=== PATIENT | female | born 1945 | race Caucasian/White ===

== ENCOUNTER 2018-01-21 00:37 | Inpatient (IN) | END 2018-01-28 16:50 | disposition home or self-care (01) | DRG 154 ==

== ENCOUNTER 2018-05-23 13:18 | Emergency (ER) | payer MEDICAID, OTHER ==
[~2018-05-23] VITALS: Wt 51.0 kg
[~2018-05-23 13:18] MED LIST: ALEN70TA5 PO; ALPR0.254 PO; DEXT1CAP PO; DONE10TA7 PO; GABA300C16 PO; LEVO500T10 PO; LOSA25TA12 PO; MEMA10TA PO; NYST1000 PO; OMEP20CA16 PO; OXYC-203 PO; PRAV20TA PO; QUET25TA PO; VENL150C PO
[2018-05-23 13:27] VITALS: BP 134/71; PULSE 126; RESP 19
== END 2018-05-23 15:31 | disposition left against medical advice (07) ==
LOC: E/R 13:18
DX: Z53.21 Procedure and treatment not carried out due to patient leaving prior to being seen by health care provider (principal)

== ENCOUNTER 2018-05-25 20:47 | Inpatient (IN) | payer OTHER, MEDICAID ==
[~2018-05-25] VITALS: Ht 162.6 cm; Wt 39.0 kg
[2018-05-25] MEDS ORDERED: ALBUTEROL 0.5% (NEB) 2.5 MG/0.5 ML AMP INH STA (20:50)
[2018-05-25] MEDS ORDERED: IPRATROPIUM (NEB) 0.5 MG/2.5 ML AMP INH STA (20:50)
[2018-05-25] MEDS ORDERED: DEXAMETHASONE 10 MG/ML 1 ML INJ IV ONE (22:00)
[2018-05-25] MEDS ORDERED: ONDANSETRON 4 MG INJ IV PRN (22:30)
[2018-05-25] MEDS ORDERED: PIPER-TAZO 3.375 GM IV (PMX) 100 ML IVPB ONE (22:30)
[2018-05-25] MEDS ORDERED: NACL 0.9% 3 ML SYG IV SCH (22:30)
--- NOTE | 2018-05-25 23:46 | HP ---
Date/Time of Note Date/Time of Note DATE: 05/25/18 TIME: 23:46 Assessment/Plan VTE Prophylaxis Pharmacological prophylaxis: LMWH Lines/Catheters IV [facility]ter Type [facility]from [facility]): Saline Lock Assessment/Plan Hospital Course This is a 73 female being admitted to the telemetry floor for: #1 sepsis: Secondary to underlying UTI. There is also question of possible pneumonia on chest x-ray however CT did not show evidence of pneumonia. At the current time we will continue Zosyn, will await urine culture results. #2 acute on chronic respiratory distress: Patient has a history of ALS, she did receive a treatment which did result in improvement. Sh she however she however does remain tachycardic in the 130s 140s though she did receive an albuterol treatment. At the current time I will switch albuterol to Xopenex nebulization. Given her hypoxia and her tachycardia though I will also check a d-dimer level and if this is elevated we will get a CTA of the chest to rule out pulmonary embolism. Will consult pulmonology. #3 urinary tract infection: Await urine culture results, continue Zosyn #4 ALS: At the current time will hold Nuedexta given that the patient was recently on Levaquin. Supportive care, PRN breathing treatments. Gabapentin #5 depression: We will hold Effexor and Seroquel alprazolam given patient's Levaquin use. #6 osteoporosis: Continue alternate #7 hypertension: Continue losartan #8 dementia hold donepezil secondary to Levaquin #9 GERD: Continue omeprazole #10 DVT and GI prophylaxis, Lovenox, Protonix CODE STATUS: DNR/DNI further treatment strategy will be implemented for clinical course Result Diagram: 05/25/18212605/25/182126 Results 24hrs Laboratory Tests Test 05/25/18 21:21 05/25/18 21:27 05/25/18 21:52 POC Venous Lactate 1.5 White Blood Count 12.7 #H Red Blood Count 4.32 # Hemoglobin 12.3 Hematocrit 41.2 Mean Corpuscular Volume 95.4 Mean Corpuscular Hemoglobin 28.5 L Mean Corpuscular 29.9 L Hemoglobin Concent Red Cell Distribution Width 13.8 Platelet Count 703 #H Mean Platelet Volume 9.2 Immature Granulocytes % 0.600 H Neutrophils % 87.4 H Lymphocytes % 7.6 L Monocytes % 4.1 Eosinophils % 0.1 Basophils % 0.2 Nucleated Red Blood Cells % 0.0 Immature Granulocytes # 0.070 H Neutrophils # 11.1 H Lymphocytes # 1.0 Monocytes # 0.5 Eosinophils # 0.0 Basophils # 0.0 Nucleated Red Blood Cells # 0.0 Prothrombin Time 13.8 Prothrombin Time Ratio 1.1 INR International 1.05 Normalized Ratio Activated Partial Thromboplast 31.9 Time Sodium Level 141 Potassium Level 3.8 Chloride Level 98 Carbon Dioxide Level 31 Anion Gap 12 Blood Urea Nitrogen 10 Creatinine 0.46 Est Glomerular Filtrat Rate mL/min Glucose Level 130 Calcium Level 10.4 H Total Bilirubin 0.0 L Direct Bilirubin 0.00 Indirect Bilirubin 0.0 Aspartate Amino 21 Transf (AST/SGOT) Alanine < 6 L Aminotransferase (ALT/SGPT) Alkaline Phosphatase 151 H Troponin I 0.015 B-Type Natriuretic Peptide 423 H Total Protein 8.1 Albumin 4.0 Globulin 4.10 H Albumin/Globulin Ratio 0.97 Urine Color YELLOW Urine Clarity SLIGHTLY CLOUDY A Urine pH 6.0 Urine Specific [place] 1.006 Urine Ketones NEGATIVE Urine Nitrite NEGATIVE Urine Bilirubin NEGATIVE Urine Urobilinogen NEGATIVE Urine Leukocyte Esterase 3+ H Urine Microscopic RBC 30 H Urine Microscopic WBC 78 H Urine Bacteria FEW A Urine Hemoglobin 1+ H Urine Glucose NEGATIVE Urine Total Protein NEGATIVE HPI/ROS Admit Date/Time Admit Date/Time Hx of Present Illness Chief complaint: Shortness of breath, generalized weakness and sick times 1 week This is a 73-year-old female with a history of ALS, has been having 1 week of feeling sick, having progressive shortness of breath. Brought in by ambulance with hypoxia, she has been on amoxicillin for potential respiratory infection. And then was started on Levaquin. She at the current time denies any respiratory distress. She is noted to be tachycardic on the gambling monitor. She also uses a home CPAP/BiPAP at night. Of note, because she was started on Levaquin as an outpatient her primary care doctor held her Effexor her Nuedexta her omeprazole and her donepezil temporarily. She does wear a diaper. Allergies: Adhesive tape Medications: See MAR ROS Const: As per HPI Eyes : No pain discharge or redness or change in visual acuity ENT: No pain, sore throat, congestion, congestion, dysphagia or discharge Respiratory: As per HPI Cardiovascular: No chest pain, palpitation, PND, or edema GI : no change in appetite, abdominal pain, nausea, vomiting, diarrhea, constipation, or change in the color his stool Genitourinary: No dysuria, hematuria, flank pain , discharge or CVA tenderness Musculoskeletal: No joint pain, back pain, neck pain, restricted range of motion in neck or joints Skin: No rash, bruising or hives Neuro: No headache, dizziness, syncope, seizure, focal weakness Endocrine: No polyuria, polydipsia, temperature intolerance Psych: No hallucination, depression, anxiety or suicidal ideation PMH/Family/Social Past Medical History ALS, dementia, hypertension, depression, hyperlipidemia, anxiety, osteoporosis Medications Current Medications Piperacillin Sod/ Tazobactam Sod 100 ml @ 200 mls/hr Q6 IVPB ; Start 05/26/18 at 06:00 Sodium Chloride 1,000 ml @ 80 mls/hr [id number] IV ; Start 05/25/18 at 22:26 IV Flush (NS 3 ml) 3 ml PER PROTOCOL IV ; Start 05/25/18 at 22:30 Ondansetron HCl (Zofran Inj) 4 mg Q6H PRN IV NAUSEA/VOMITING; Start 05/25/18 at 22:30 Ipratropium [place] (Atrovent 0.02% (Neb)) 0.5 mg Q4H RESP THERAPY HHN ; Start 05/25/18 at 22:30 Levalbuterol (Xopenex Neb) 1.25 mg Q4H RESP THERAPY HHN ; Start 05/25/18 at 22:30 Coded Allergies: adhesive tape (Unverified Allergy, Intermediate, RASH, 01/22/18) Past Surgical History Right hip surgery Past Surgical Hx: other Family History Significant Family History: no pertinent family hx, other Social History Alcohol Use: none Smoking Status: Never smoker Drug Use: none Exam/Review of Systems Vital Signs Vitals Vital Signs Date Temp Pulse Resp B/P (MAP) Pulse Ox O2 O2 Flow FiO2 Time Delivery Rate 05/25/18 126 17 93 Nasal 4.0 21:34 Cannula 05/25/18 98.1 142/98 20:51 (113) Exam Exam General: Patient is a pleasant female currently sitting in bed she does not appear to be in any acute distress, frail-appearing and somewhat contracted, she is cachectic HEENT: Atraumatic, normocephalic. The pupils are equal, round and reactive. Extraocular motor are intact Neck: Supple with full range of motion. No rigidity or meningismus Chest: Nontender Lungs: Clear to auscultation bilaterally, limited respiratory inspiration likely secondary to ALS Heart: Sinus tachycardia Abdomen: Soft , nontender, nondistended , bowel sounds are present. No guarding no rebound tenderness , No masses or organomegaly. No costovertebral temporal angle mass Extremities: Normal to inspection, no edema no cyanosis Neurologic: Awake and alert, answering questions, further neurological examination was unable to be assessed given her ALS and clinical condition. Additional Comments PROCEDURE: CT Chest, Abdomen and Pelvis without contrast. CLINICAL INDICATION: Shortness of breath TECHNIQUE: CT scan of the chest, abdomen and pelvis was performed on a multidetector CT scanner. No intravenous contrast material was utilized. Coronal and sagittal reformatted images were obtained from the axial source images. Images were reviewed on a high-resolution PACS workstation. Exam CTDlvol = 7 mGy and DLP = 463 mGy-cm. One of the following 3 dose reduction techniques were used: Automated exposure control; adjustment of the mA and/or kV according to patient size; or use of iterative reconstruction technique. DICOM images are available. COMPARISON: Chest x-ray 05/25/2018, CT abdomen pelvis 07/25/2010 FINDINGS: CT Chest: There is redemonstrated severely elevated left hemidiaphragm extending to the upper left chest at the level aortic arch. There is an underlying gas-filled stomach of loops of bowel. There is left-sided pleural fluid and atelectasis small amount of left apical aerated lung. There is small amount of right pleural fluid. Mild right basilar atelectasis. Heart and mediastinum are displaced to the right. Heart is normal in size. There is no pericardial fluid or effusion. Pulmonary arteries are unremarkable. The thoracic aorta is normal caliber without aneurysm. There is no mediastinal or hilar lymphadenopathy or mass. There are mild degenerative changes of the thoracic spine. There are no fractures. There is scattered calcifications in the breasts bilaterally. CT abdomen/pelvis: The liver is overall normal in size. No intrahepatic lesions are identified. The gallbladder is normal in appearance. There is no definite biliary ductal dilation. Pancreas is normal in appearance. The spleen is unremarkable.. There are no adrenal masses. The aorta is normal in caliber. There are atherosclerotic vascular calcification. IVC filter is present.. There is moderate severe left hydronephrosis and proximal hydroureter to the level of 8.0 x 7 mm obstructing calculus in the proximal left ureter. There is no other renal or ureteral calculus. There are nonobstructing calcifications in the lower pole left kidney. Urinary bladder is well distended and normal in appearance. There is wall thickening in the intrathoracic stomach. There is no obstruction or ileus. The appendix is normal in appearance.. There is no evidence for diverticulitis. There is no free fluid. Uterus is unremarkable. There are degenerative changes of the lower lumbar spine. There is metal artifact from a right hip bipolar arthroplasty. IMPRESSION: 1. Chronically severely elevated left hemidiaphragm similar to prior study 07/25/2010. Associated mediastinal shift to the right and left apical atelectasis with small amount of aerated lung at the left lung apex. 2. Patchy atelectasis at the right lung base. 3. Redemonstrated calcifications in the proximal left ureter also present on 07/25/2010. Size of the proximal left ureteral calcification and degree of severe left hydronephrosis and hydro ureter is increased. 4. Wall thickening of the intrathoracic stomach. No definite bowel obstruction or ileus. 5. Remainder of the study is unchanged. RPTAT: HMVK .Scooby Raímrez MD, MD Date Time Electronically viewed and signed by .Scooby Ramírez MD, MD on 05/25/2018 23:26 .K/ CC: RONEN YU MD [id number] PROCEDURE: XR Chest. CLINICAL INDICATION: chest pain TECHNIQUE: Single frontal view of the chest was obtained COMPARISON: DR FREITAS CHEST 01/23/2018; AQUILINO CHEST 05/18/2015 FINDINGS: There is worsening marked elevation of the left diaphragm. There is left lung atelectasis and possible effusion. There is only a minimal amount of aerated lung in the left upper lobe. There are dilated loops of bowel underneath the left diaphragm. There is shift of the mediastinum to the right. The heart size cannot be adequately evaluated. There is a possible right lower lobe infiltrate. RPTAT: AA IMPRESSION: Worsening marked elevation of the left diaphragm. Left lung atelectasis and possible effusion. Only a small amount of aerated lung seen in the left upper lobe. Dilated loops of bowel underneath the left diaphragm. Possible patchy right lower lobe infiltrate. Further evaluation with a CT of the chest and abdomen is recommended. .Uri Rutledge MD, MD Date Time Electronically viewed and signed by .Uri Rutledge MD, MD on 05/25/2018 22:13 .S/ CC: RONEN YU MD [id number] YOMI LOVETT May 25, 2018 23:46
[2018-05-25] MEDS: IPRATROPIUM (NEB) 0.5 MG/2.5 ML AMP HHN SCH (23:59)
[2018-05-25] MEDS: LEVALBUTEROL (NEB) 1.25 MG/0.5 ML AMP HHN SCH (23:59)
[2018-05-26] VITALS (12 sets, daily range): BP systolic 128–144; BP diastolic 63–81; PULSE 114–137; RESP 18–20; Ht 162.6 cm; Wt 39.0 kg
--- NOTE | 2018-05-26 01:23 | ERD ---
ER Documentation Chief Complaint Chief Complaint CÉSAR STEWART from home,gen weakness,"sick" X1 week per family,hx ALS HPI 73-year-old female with a history of ALS, has been having 1 week of feeling sick, having progressive shortness of breath. Brought in by ambulance with hypoxia, she has been on amoxicillin for potential respiratory infection. Patient is DO NOT INTUBATE, she is also been using Xopenex at home. History was obtained from patient, spouse as well as daughter. ROS All systems reviewed and are negative except as per history of present illness. Medications Home Meds Active Scripts Levofloxacin* (Levofloxacin*) 500 Mg Tablet, 500 MG PO DAILY for 5 Days, #5 TAB Prov:JEANETTE CACERES M. 01/27/18 Nystatin (Nystatin) 100,000 Unit/1 Ml Oral.susp, 5 ML PO QID for 7 Days, #150 ML Prov:JEANETTE CACERES M. 01/27/18 Reported Medications Oxycodone HCl/Acetaminophen (Percocet 7.5-325 mg Tablet) 1 Each Tablet, 1 EACH PO, TAB 01/20/18 Alprazolam* (Alprazolam*) 0.25 Mg Tablet, 0.25 MG PO TID PRN for ANXIETY, TAB 01/20/18 Alendronate Sodium* (Fosamax*) 70 Mg Tablet, 70 MG PO Q7D, #4 TAB 01/20/18 Memantine* (Namenda*) 10 Mg Tablet, 10 MG PO QPM, #30 TAB 01/20/18 Donepezil* (Donepezil*) 10 Mg Tablet, 10 MG PO QHS, #30 TAB 01/20/18 Quetiapine Fumarate* (Seroquel*) 25 Mg Tablet, 25 MG PO HS, #30 TAB 01/20/18 Omeprazole* (Omeprazole*) 20 Mg Capsule.dr, 20 MG PO BID, #30 CAP 01/20/18 Pravastatin Sodium (Pravachol) 20 Mg Tablet, 20 MG PO QPM, TAB 01/20/18 Gabapentin* (Gabapentin*) 300 Mg Capsule, 600 MG PO QHS, #180 CAP 01/20/18 Losartan Potassium* (Losartan Potassium*) 25 Mg Tablet, 25 MG PO BID, TAB 01/20/18 Venlafaxine Hcl* (Effexor XR*) 150 Mg Cap.sr.24h, 150 MG PO QAM, CAP 01/20/18 Dextromethorphan Hbr/Quinidine (NUEDEXTA 20-10 MG CAPSULE) 1 Each Capsule, 1 EACH PO BID, CAP 01/20/18 Allergies Allergies: Coded Allergies: adhesive tape (Unverified Allergy, Intermediate, RASH, 01/22/18) PMhx/Soc History of Surgery: Yes (RIGHT HIP ORIF;IVC FILTER;EGD;) Anesthesia Reaction: No Hx Neurological Disorder: Yes (ALS;ALZHEIMER DEMENTIA;) Hx Respiratory Disorders: Yes (LOW LUNG VOLUMES;) Hx Cardiac Disorders: No Hx Psychiatric Problems: No Hx Miscellaneous Medical Probl: No Hx Alcohol Use: No Hx Substance Use: No Hx Tobacco Use: No Smoking Status: Never smoker Physical Exam Vitals Vital Signs Date Temp Pulse Resp B/P (MAP) Pulse Ox O2 O2 Flow FiO2 Time Delivery Rate 05/26/18 136 22 95 Nasal 3.0 00:01 Cannula 05/26/18 95 3.0 00:00 05/25/18 126 17 93 Nasal 4.0 21:34 Cannula 05/25/18 93 4.0 21:34 05/25/18 Nasal 3 21:27 Cannula 05/25/18 Nasal 3.0 21:27 Cannula 05/25/18 98.1 131 21 142/98 93 20:51 (113) Physical Exam Const: Thin frail appearing female, with muscle wasting noted at the ex tremities. Head: Atraumatic Eyes: Normal Conjunctiva ENT: Normal External Ears, Nose and Mouth. Neck: Full range of motion. No meningismus. Resp: Breath sounds are decreased on the left side, rhonchorous on the right side Cardio: Regular rate and rhythm, no murmurs Abd: Soft, non tender, non distended. Normal bowel sounds Skin: No petechiae or rashes Back: No midline or flank tenderness Ext: No cyanosis, or edema Neur: Awake and alert Psych: Normal Mood and Affect Result Diagram: 05/25/18212605/25/182126 Results 24 hrs Laboratory Tests Test 05/25/18 21:21 05/25/18 21:27 05/25/18 21:52 POC Venous Lactate 1.5 mmol/L White Blood Count 12.7 10^3/ul Red Blood Count 4.32 10^6/ul Hemoglobin 12.3 g/dl Hematocrit 41.2 % Mean Corpuscular Volume 95.4 fl Mean Corpuscular Hemoglobin 28.5 pg Mean Corpuscular 29.9 g/dl Hemoglobin Concent Red Cell Distribution Width 13.8 % Platelet Count 703 10^3/UL Mean Platelet Volume 9.2 fl Immature Granulocytes % 0.600 % Neutrophils % 87.4 % Lymphocytes % 7.6 % Monocytes % 4.1 % Eosinophils % 0.1 % Basophils % 0.2 % Nucleated Red Blood Cells % 0.0 /100WBC Immature Granulocytes # 0.070 10^3/ul Neutrophils # 11.1 10^3/ul Lymphocytes # 1.0 10^3/ul Monocytes # 0.5 10^3/ul Eosinophils # 0.0 10^3/ul Basophils # 0.0 10^3/ul Nucleated Red Blood Cells # 0.0 10^3/ul Prothrombin Time 13.8 Sec Prothrombin Time Ratio 1.1 INR International 1.05 Normalized Ratio Activated Partial Thromboplast 31.9 Sec Time Sodium Level 141 mmol/L Potassium Level 3.8 mmol/L Chloride Level 98 mmol/L Carbon Dioxide Level 31 mmol/L Anion Gap 12 Blood Urea Nitrogen 10 mg/dl Creatinine 0.46 mg/dl Est Glomerular Filtrat mL/min Rate mL/min Glucose Level 130 mg/dl Calcium Level 10.4 mg/dl Total Bilirubin 0.0 mg/dl Direct Bilirubin 0.00 mg/dl Indirect Bilirubin 0.0 mg/dl Aspartate Amino 21 IU/L Transf (AST/SGOT) Alanine < 6 IU/L Aminotransferase (ALT/SGPT) Alkaline Phosphatase 151 IU/L Troponin I 0.015 ng/ml B-Type Natriuretic Peptide 423 PG/ML Total Protein 8.1 g/dl Albumin 4.0 g/dl Globulin 4.10 g/dl Albumin/Globulin Ratio 0.97 Urine Color YELLOW Urine Clarity SLIGHTLY CLOUDY Urine pH 6.0 Urine Specific [place] 1.006 Urine Ketones NEGATIVE mg/dL Urine Nitrite NEGATIVE mg/dL Urine Bilirubin NEGATIVE mg/dL Urine Urobilinogen NEGATIVE mg/dL Urine Leukocyte Esterase 3+ Ramila/ul Urine Microscopic RBC 30 /HPF Urine Microscopic WBC 78 /HPF Urine Bacteria FEW /HPF Urine Hemoglobin 1+ mg/dL Urine Glucose NEGATIVE mg/dL Urine Total Protein NEGATIVE mg/dl Current Medications Medications Dose Sig/Kim Start Time Status Last (Trade) Ordered Route PRN Stop Time Admin Dose Reason Admin Ipratropium 0.5 mg ONCE STAT 05/25/18 DC 05/25/18 Young Harris INH 20:50 21:33 (Atrovent 05/25/18 20:53 0.02% (Neb)) Albuterol 15 mg ONCE STAT 05/25/18 DC 05/25/18 (Proventil INH 20:50 21:33 0.5% (Neb)) 05/25/18 20:53 10 mg ONCE ONCE 05/25/18 DC 05/25/18 Dexamethasone IV 22:00 22:00 (Decadron) 05/25/18 22:01 Piperacillin 100 ml @ ONCE ONCE 05/25/18 DC 05/25/18 Sod/ 200 mls/hr IVPB 22:30 23:10 Tazobactam 05/25/18 22:59 Sod Piperacillin 100 ml @ Q6 IVPB 05/26/18 Sod/ 200 mls/hr 06:00 Tazobactam Sod Sodium 1,000 ml @ [id number] IV 05/25/18 Chloride 80 mls/hr 22:26 IV Flush 3 ml PER 05/25/18 (NS 3 ml) PROTOCOL IV 22:30 Ondansetron 4 mg Q6H PRN 05/25/18 HCl (Zofran IV 22:30 Inj) NAUSEA/VOMITI NG Ipratropium 0.5 mg Q4H RESP 05/25/18 05/26/18 Young Harris THERAPY HHN 22:30 00:00 (Atrovent 0.02% (Neb)) 1.25 mg Q4H RESP 05/25/18 05/26/18 Levalbuterol THERAPY HHN 22:30 00:00 (Xopenex Neb) Procedures/MDM 73-year-old female presents for evaluation of progressive weakness and shortness of breath. Most likely suspect that her symptoms are at least partially, related to her chronic ALS, x-ray shows atelectasis, as well as findings below, I cannot definitively rule out pneumonia, thus we will treat empirically with Zosyn, which will also cover pyuria, patient does not have any urinary symptoms. She has no fever, I do not suspect sepsis at this point, patient is a DNR/DNI, she will be admitted to telemetry under Dr. Mcleod. She will also be receiving chest physiotherapy. 1. Chronically severely elevated left hemidiaphragm similar to prior study 07/25/2010. Associated mediastinal shift to the right and left apical atelectasis with small amount of aerated lung at the left lung apex. 2. Patchy atelectasis at the right lung base. 3. Redemonstrated calcifications in the proximal left ureter also present on 07/25/2010. Size of the proximal left ureteral calcification and degree of severe left hydronephrosis and hydro ureter is increased. 4. Wall thickening of the intrathoracic stomach. No definite bowel obstruction or ileus. 5. Remainder of the study is unchanged. EKG: Rate/Rhythm: Normal Sinus Rhythm QRS, ST, T-waves: No changes consistent w/ acute ischemia Impression: No evidence of ischemia or arrhythmia Departure Diagnosis: Primary Impression: Acute weakness Additional Impressions: Hypoxia ALS (amyotrophic lateral sclerosis) Condition: Serious RONEN YU MD May 26, 2018 01:23
[2018-05-26] MEDS: SOD CHLORIDE 0.9% 1,000 ML IV SCH ×4 (03:06→23:26)
[2018-05-26] MEDS ORDERED: ENOXAPARIN 40 MG/0.4 ML SYG SC SCH ×2 (05:00)
[2018-05-26] MEDS: IPRATROPIUM (NEB) 0.5 MG/2.5 ML AMP HHN SCH ×6 (05:44→20:57)
[2018-05-26] MEDS: LEVALBUTEROL (NEB) 1.25 MG/0.5 ML AMP HHN SCH ×6 (05:44→20:57)
[2018-05-26] MEDS: PIPER-TAZO 3.375 GM IV (PMX) 100 ML IVPB SCH ×4 (05:56→23:56)
--- NOTE | 2018-05-26 06:58 | NUR ---
EOSS Received pt from Ed at 0200, pt placed on tele monitor, vitals taken, head to toe assessment taken. Pt updated on plan of care, low air loss mattress ordered, SCDs on pt. Pt turned and repositioned q 2 hours, caregiver at bedside, pt daughter to arrive in AM, will endorse to oncoming RN.
[2018-05-26] MEDS ORDERED: ALPRAZOLAM 0.25 MG TAB PO PRN (08:30)
[2018-05-26] MEDS: ACETYLCYSTEINE 20% 4 ML VIAL NEB SCH ×3 (08:40→20:54)
[2018-05-26] MEDS ORDERED: SOD CHLORIDE 0.9% 100 ML ONE (09:09)
[2018-05-26] MEDS ORDERED: IOHEXOL 100 ML ONE (09:09)
--- NOTE | 2018-05-26 09:45 | CONS ---
Assessment/Plan Assessment/Plan Assessment/Plan (Daily) Chest x-ray showing chronic appearing volume loss on the left side with eventration of left hemidiaphragm, stomach is mostly in the chest cavity. CT chest findings showing similar results. Assessment recommendations; 1. Patient with history of ALS admitted for UTI and pneumonia involving left gilda ng. Currently on appropriate antimicrobial regimen. 2. Chronic eventration left hemidiaphragm. Continue current supportive care. I did have a detailed discussion with the patient's daughter and at bedside and answered all their questions. Consultation Date/Type/Reason Admit Date/Time Date of Consultation: May 26, 2018 Type of Consult Pulmonary Patient is a pleasant 73-year-old lady who was brought into the hospital with complaints of having some chest congestion and coughing. Upon evaluation further workup was done including a chest x-ray which is showing chronic volume loss of the left side due to eventration of left hemidiaphragm with possibility of superimposed pneumonia as well as UTI. The patient however is doing very well clinically and was completely awake and alert by the time I saw her. She denies any shortness of breath, chest pain, complains of scant cough without any wheezing or fever. Denies any abdominal pain nausea vomiting. Past medical history; 1. History of ALS. 2. History of UTI. 3. History of DVT. Medications; reviewed. Allergies; adhesive tape. Social history; patient has been a non-smoker. Family history; patient has a supportive family. Occupational history; patient is on disability. Review of systems; denies any headache, chest pain, shortness of breath has improved. Complains of scant cough. Patient denies having any dysphagia. Able to eat orally quite well. Denies any abdominal pain, nausea vomiting. Any fever or chills. General exam; elderly female, awake alert, currently in no distress. Date/Time of Note DATE: 05/26/18 TIME: 09:41 Past Medical History Home Meds Active Scripts Levofloxacin* (Levofloxacin*) 500 Mg Tablet, 500 MG PO DAILY for 5 Days, #5 TAB Prov:JEANETTE CACERES 01/27/18 Nystatin (Nystatin) 100,000 Unit/1 Ml Oral.susp, 5 ML PO QID for 7 Days, #150 ML Prov:JEANETTE CACERES 01/27/18 Reported Medications Oxycodone HCl/Acetaminophen (Percocet 7.5-325 mg Tablet) 1 Each Tablet, 1 EACH PO, TAB 01/20/18 Alprazolam* (Alprazolam*) 0.25 Mg Tablet, 0.25 MG PO TID PRN for ANXIETY, TAB 01/20/18 Alendronate Sodium* (Fosamax*) 70 Mg Tablet, 70 MG PO Q7D, #4 TAB 01/20/18 Memantine* (Namenda*) 10 Mg Tablet, 10 MG PO QPM, #30 TAB 01/20/18 Donepezil* (Donepezil*) 10 Mg Tablet, 10 MG PO QHS, #30 TAB 01/20/18 Quetiapine Fumarate* (Seroquel*) 25 Mg Tablet, 25 MG PO HS, #30 TAB 01/20/18 Omeprazole* (Omeprazole*) 20 Mg Capsule.dr, 20 MG PO BID, #30 CAP 01/20/18 Pravastatin Sodium (Pravachol) 20 Mg Tablet, 20 MG PO QPM, TAB 01/20/18 Gabapentin* (Gabapentin*) 300 Mg Capsule, 600 MG PO QHS, #180 CAP 01/20/18 Losartan Potassium* (Losartan Potassium*) 25 Mg Tablet, 25 MG PO BID, TAB 01/20/18 Venlafaxine Hcl* (Effexor XR*) 150 Mg Cap.sr.24h, 150 MG PO QAM, CAP 01/20/18 Dextromethorphan Hbr/Quinidine (NUEDEXTA 20-10 MG CAPSULE) 1 Each Capsule, 1 EACH PO BID, CAP 01/20/18 Medications Current Medications Piperacillin Sod/ Tazobactam Sod 100 ml @ 200 mls/hr Q6 IVPB Last administered on 05/26/18at 05:56; Admin Dose 200 MLS/HR; Start 05/26/18 at 06:00 Sodium Chloride 1,000 ml @ 80 mls/hr [id number] IV Last administered on 05/26/18at 03:06; Admin Dose 80 MLS/HR; Start 05/25/18 at 22:26 IV Flush (NS 3 ml) 3 ml PER PROTOCOL IV ; Start 05/25/18 at 22:30 Ondansetron HCl (Zofran Inj) 4 mg Q6H PRN IV NAUSEA/VOMITING; Start 05/25/18 at 22:30 Ipratropium [place] (Atrovent 0.02% (Neb)) 0.5 mg Q4H RESP THERAPY HHN Last administered on 05/26/18at 08:28; Admin Dose 0.5 MG; Start 05/25/18 at 22:30 Levalbuterol (Xopenex Neb) 1.25 mg Q4H RESP THERAPY HHN Last administered on 05/26/18at 08:28; Admin Dose 1.25 MG; Start 05/25/18 at 22:30 Acetylcysteine (Mucomyst) 3 ml Q6H RESP THERAPY NEB Last administered on 05/26/18at 08:40; Admin Dose 3 ML; Start 05/26/18 at 08:00; Stop 05/27/18 at 07:59 Enoxaparin Sodium (Lovenox) 40 mg Q12 SC Last administered on 05/26/18at 06:14; Admin Dose 40 MG; Start 05/26/18 at 05:00 Alendronate Sodium (Fosamax) 70 mg Q7D PO ; Start 06/01/18 at 06:00 Alprazolam (Xanax) 0.25 mg TID PRN PO ANXIETY; Start 05/26/18 at 08:30 Gabapentin (Neurontin) 600 mg QHS PO ; Start 05/26/18 at 21:00 Losartan Potassium (Cozaar) 25 mg BID PO ; Start 05/26/18 at 09:00 Memantine (Namenda) 10 mg QPM PO ; Start 05/26/18 at 21:00 Nystatin (Nystatin Susp) 5 ml QID PO ; Start 05/26/18 at 09:00 Pantoprazole Sodium (Protonix) 20 mg BID@0600,1800 PO ; Start 05/26/18 at 09:00 Atorvastatin Calcium (Lipitor) 10 mg DAILY@21 PO ; Start 05/26/18 at 21:00 Allergies: Coded Allergies: adhesive tape (Unverified Allergy, Intermediate, RASH, 01/22/18) Past Surgical History Past Surgical Hx: other Social History Alcohol Use: none Smoking Status: Never smoker Drug Use: none Exam/Review of Systems Exam Vitals Vital Signs Date Temp Pulse Resp B/P (MAP) Pulse Ox O2 O2 Flow FiO2 Time Delivery Rate 05/26/18 122 08:36 05/26/18 24 98 Nasal 3.0 08:29 Cannula 05/26/18 98.1 144/81 07:50 (102) Intake and Output 05/25/18 05/25/18 05/26/18 1515:00 23:00 07:00 IntakeIntake Total 100 ml OutputOutput Total 40 ml BalanceBalance 60 ml Exam HEENT exam; supple neck, no JVD. No lymphadenopathy. Midline trachea. No thyromegaly. Patient has fair dentition. Chest exam; diminished breath sounds left lung. Right lung is fairly clear. S1-S2 audible, no murmurs. Regular rhythm. Abdomen exam; soft, nondistended. No organomegaly. Bowel sounds audible. Extremity exam; no peripheral edema. 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 Exhibiting profound generalized weakness. Results Result Diagram: 05/26/18 0359 05/26/18 0359 Results 24hrs Laboratory Tests Test 05/25/18 21:21 05/25/18 21:27 05/25/18 21:52 05/26/18 00:56 POC Venous 1.5 Lactate White Blood Count 12.7 #H Red Blood Count 4.32 # Hemoglobin 12.3 Hematocrit 41.2 Mean Corpuscular 95.4 Volume Mean Corpuscular 28.5 L Hemoglobin Mean Corpuscular 29.9 L Hemoglobin Concen t Red Cell 13.8 Distribution Width Platelet Count 703 #H Mean Platelet 9.2 Volume Immature 0.600 H Granulocytes % Neutrophils % 87.4 H Lymphocytes % 7.6 L Monocytes % 4.1 Eosinophils % 0.1 Basophils % 0.2 Nucleated Red 0.0 Blood Cells % Immature 0.070 H Granulocytes # Neutrophils # 11.1 H Lymphocytes # 1.0 Monocytes # 0.5 Eosinophils # 0.0 Basophils # 0.0 Nucleated Red 0.0 Blood Cells # Prothrombin Time 13.8 Prothrombin Time 1.1 Ratio INR International 1.05 Normalized Ratio Activated 31.9 Partial Thrombopl ast Time Sodium Level 141 Potassium Level 3.8 Chloride Level 98 Carbon Dioxide 31 Level Anion Gap 12 Blood Urea 10 Nitrogen Creatinine 0.46 Est Glomerular Filtrat Rate mL/min Glucose Level 130 Calcium Level 10.4 H Total Bilirubin 0.0 L Direct Bilirubin 0.00 Indirect 0.0 Bilirubin Aspartate Amino 21 Transf (AST/SGOT) Alanine < 6 L Aminotransferase (ALT/SGPT) Alkaline 151 H Phosphatase Troponin I 0.015 B-Type 423 H Natriuretic Peptide Total Protein 8.1 Albumin 4.0 Globulin 4.10 H Albumin/Globulin 0.97 Ratio Urine Color YELLOW Urine Clarity SLIGHTLY CLOUDY A Urine pH 6.0 Urine Specific 1.006 [place] Urine Ketones NEGATIVE Urine Nitrite NEGATIVE Urine Bilirubin NEGATIVE Urine NEGATIVE Urobilinogen Urine Leukocyte 3+ H Esterase Urine Microscopic 30 H RBC Urine Microscopic 78 H WBC Urine Bacteria FEW A Urine Hemoglobin 1+ H Urine Glucose NEGATIVE Urine Total NEGATIVE Protein Lactic Acid Level 1.6 Test 05/26/18 03:59 White Blood Count 14.2 H Red Blood Count 3.52 L Hemoglobin 10.3 L Hematocrit 33.4 L Mean Corpuscular 94.9 Volume Mean Corpuscular 29.3 Hemoglobin Mean Corpuscular 30.8 L Hemoglobin Concen t Red Cell 13.8 Distribution Width Platelet Count 600 H Mean Platelet 9.1 Volume Immature 0.700 H Granulocytes % Neutrophils % 94.7 H Lymphocytes % 3.2 L Monocytes % 1.3 Eosinophils % 0.0 Basophils % 0.1 Nucleated Red 0.0 Blood Cells % Immature 0.100 H Granulocytes # Neutrophils # 13.4 H Lymphocytes # 0.5 L Monocytes # 0.2 L Eosinophils # 0.0 Basophils # 0.0 Nucleated Red 0.0 Blood Cells # D-Dimer 1316.96 H D-Dimer Comment Sodium Level 142 Potassium Level 3.7 Chloride Level 100 Carbon Dioxide 30 Level Anion Gap 12 Blood Urea 11 Nitrogen Creatinine 0.43 L Est Glomerular Filtrat Rate mL/min Glucose Level 162 Hemoglobin A1c 5.4 Calcium Level 9.8 Total Bilirubin 0.0 L Direct Bilirubin 0.00 Indirect 0.0 Bilirubin Aspartate Amino 17 Transf (AST/SGOT) Alanine < 6 L Aminotransferase (ALT/SGPT) Alkaline 115 Phosphatase Total Protein 6.8 # Albumin 3.4 Globulin 3.40 H Albumin/Globulin 1.00 Ratio Medications Medication Current Medications Piperacillin Sod/ Tazobactam Sod 100 ml @ 200 mls/hr Q6 IVPB Last administered on 05/26/18at 05:56; Admin Dose 200 MLS/HR; Start 05/26/18 at 06:00 Sodium Chloride 1,000 ml @ 80 mls/hr [id number] IV Last administered on 05/26/18at 03:06; Admin Dose 80 MLS/HR; Start 05/25/18 at 22:26 IV Flush (NS 3 ml) 3 ml PER PROTOCOL IV ; Start 05/25/18 at 22:30 Ondansetron HCl (Zofran Inj) 4 mg Q6H PRN IV NAUSEA/VOMITING; Start 05/25/18 at 22:30 Ipratropium [place] (Atrovent 0.02% (Neb)) 0.5 mg Q4H RESP THERAPY HHN Last administered on 05/26/18at 08:28; Admin Dose 0.5 MG; Start 05/25/18 at 22:30 Levalbuterol (Xopenex Neb) 1.25 mg Q4H RESP THERAPY HHN Last administered on 05/26/18at 08:28; Admin Dose 1.25 MG; Start 05/25/18 at 22:30 Acetylcysteine (Mucomyst) 3 ml Q6H RESP THERAPY NEB Last administered on 05/26/18at 08:40; Admin Dose 3 ML; Start 05/26/18 at 08:00; Stop 05/27/18 at 07:59 Enoxaparin Sodium (Lovenox) 40 mg Q12 SC Last administered on 05/26/18at 06:14; Admin Dose 40 MG; Start 05/26/18 at 05:00 Alendronate Sodium (Fosamax) 70 mg Q7D PO ; Start 06/01/18 at 06:00 Alprazolam (Xanax) 0.25 mg TID PRN PO ANXIETY; Start 05/26/18 at 08:30 Gabapentin (Neurontin) 600 mg QHS PO ; Start 05/26/18 at 21:00 Losartan Potassium (Cozaar) 25 mg BID PO ; Start 05/26/18 at 09:00 Memantine (Namenda) 10 mg QPM PO ; Start 05/26/18 at 21:00 Nystatin (Nystatin Susp) 5 ml QID PO ; Start 05/26/18 at 09:00 Pantoprazole Sodium (Protonix) 20 mg BID@0600,1800 PO ; Start 05/26/18 at 09:00 Atorvastatin Calcium (Lipitor) 10 mg DAILY@21 PO ; Start 05/26/18 at 21:00 MARQUIS GHOSH May 26, 2018 09:45
[2018-05-26] MEDS ORDERED: METOPROLOL 5 MG INJ IV ONE (10:00)
[2018-05-26] MEDS: NYSTATIN SUSP 5 ML CUP PO SCH ×4 (10:09→21:51)
[2018-05-26] MEDS: PANTOPRAZOLE SODIUM 20 MG TABEC PO SCH ×2 (10:09→17:32)
[2018-05-26] MEDS: LOSARTAN 25 MG TAB PO SCH ×2 (10:10→21:52)
--- NOTE | 2018-05-26 16:36 | PN ---
Date/Time of Note Date/Time of Note DATE: 05/26/18 TIME: 16:04 Assessment/Plan VTE Prophylaxis Risk score (from Nsg)>0 risk: 6 SCD applied (from Nsg): Yes Pharmacological prophylaxis: LMWH Lines/Catheters IV Catheter Type (from Nrsg): Peripheral IV Urinary Cath still in place: Yes Reason Cath still needed: other (indicate) Assessment/Plan Hospital Course S: no new complaints, family feels she's slightly better, has a lot of questions, reports that she does cough while eating a lot at home Objective: General: Patient is a pleasant female currently sitting in bed she does not appear to be in any acute distress, frail-appearing and somewhat contracted, she is cachectic HEENT: Atraumatic, normocephalic. The pupils are equal, round and reactive. Extraocular motor are intact Neck: Supple with full range of motion. No rigidity or meningismus Chest: Nontender Lungs: Clear to auscultation bilaterally, limited respiratory inspiration likely secondary to ALS Heart: Sinus tachycardia Abdomen: Soft , nontender, nondistended , bowel sounds are present. No guarding no rebound tenderness , No masses or organomegaly. No costovertebral temporal angle mass Extremities: Normal to inspection, no edema no cyanosis Neurologic: Awake and alert, answering questions, occasional confusion cons istent with hx of mild dementia ASSESSMENT AND PLAN: This is a 73-year-old female with a history of ALS, has been having 1 week of feeling sick, having progressive shortness of breath. Brought in by ambulance with hypoxia and was on outpatient abx with progression of symptoms, currently admitted and managed as follows: #1 Sepsis: Secondary to underlying UTI and possible aspiration pneumonia - Continue empiric abx -f/u blood and urine cxs and CT chest to define lung parencyma #2 acute on chronic respiratory distress: -diffuse atelectasis on CXR, f/u CT chest, continue supplemental O2 -Patient with hx of ALS ?disease progression -CTA chest pending to r/o PE -continue supplemetal O2, patient is DNI -continue Bronchodilators #3 urinary tract infection: -Await urine culture results, continue Zosyn #4 ALS: - Nuedexta was put on hold given that the patient was recently on Levaquin. -concerns for aspiration, will get speech therapy eval #5 depression: -Home Effexor, Seroquel and alprazolam on hold given patient's Levaquin us e, plan to resume win 24hrs #6 osteoporosis: chronic, continue home meds #7 hypertension: Continue losartan #8 Chronic dementia: -episoded of pleasant confusion, resume home donepesil in am #9 GERD: Continue omeprazole -patient has hx of severe GI bleeding from a gastric ulcer that was caute rized in the past, family hesitant to use full dose anticoagulation because of this #10 DVT and GI prophylaxis, Lovenox, Protonix CODE STATUS: DNR/DNI further treatment strategy will be implemented for clinical course Result Diagram: 05/26/18 0359 05/26/18 0359 Results 24hrs Laboratory Tests Test 05/25/18 21:21 05/25/18 21:27 05/25/18 21:52 05/26/18 00:56 POC Venous 1.5 Lactate White Blood Count 12.7 #H Red Blood Count 4.32 # Hemoglobin 12.3 Hematocrit 41.2 Mean Corpuscular 95.4 Volume Mean Corpuscular 28.5 L Hemoglobin Mean Corpuscular 29.9 L Hemoglobin Concen t Red Cell 13.8 Distribution Width Platelet Count 703 #H Mean Platelet 9.2 Volume Immature 0.600 H Granulocytes % Neutrophils % 87.4 H Lymphocytes % 7.6 L Monocytes % 4.1 Eosinophils % 0.1 Basophils % 0.2 Nucleated Red 0.0 Blood Cells % Immature 0.070 H Granulocytes # Neutrophils # 11.1 H Lymphocytes # 1.0 Monocytes # 0.5 Eosinophils # 0.0 Basophils # 0.0 Nucleated Red 0.0 Blood Cells # Prothrombin Time 13.8 Prothrombin Time 1.1 Ratio INR International 1.05 Normalized Ratio Activated 31.9 Partial Thrombopl ast Time Sodium Level 141 Potassium Level 3.8 Chloride Level 98 Carbon Dioxide 31 Level Anion Gap 12 Blood Urea 10 Nitrogen Creatinine 0.46 Est Glomerular Filtrat Rate mL/min Glucose Level 130 Calcium Level 10.4 H Total Bilirubin 0.0 L Direct Bilirubin 0.00 Indirect 0.0 Bilirubin Aspartate Amino 21 Transf (AST/SGOT) Alanine < 6 L Aminotransferase (ALT/SGPT) Alkaline 151 H Phosphatase Troponin I 0.015 B-Type 423 H Natriuretic Peptide Total Protein 8.1 Albumin 4.0 Globulin 4.10 H Albumin/Globulin 0.97 Ratio Urine Color YELLOW Urine Clarity SLIGHTLY CLOUDY A Urine pH 6.0 Urine Specific 1.006 [place] Urine Ketones NEGATIVE Urine Nitrite NEGATIVE Urine Bilirubin NEGATIVE Urine NEGATIVE Urobilinogen Urine Leukocyte 3+ H Esterase Urine Microscopic 30 H RBC Urine Microscopic 78 H WBC Urine Bacteria FEW A Urine Hemoglobin 1+ H Urine Glucose NEGATIVE Urine Total NEGATIVE Protein Lactic Acid Level 1.6 Test 05/26/18 03:59 White Blood Count 14.2 H Red Blood Count 3.52 L Hemoglobin 10.3 L Hematocrit 33.4 L Mean Corpuscular 94.9 Volume Mean Corpuscular 29.3 Hemoglobin Mean Corpuscular 30.8 L Hemoglobin Concen t Red Cell 13.8 Distribution Width Platelet Count 600 H Mean Platelet 9.1 Volume Immature 0.700 H Granulocytes % Neutrophils % 94.7 H Lymphocytes % 3.2 L Monocytes % 1.3 Eosinophils % 0.0 Basophils % 0.1 Nucleated Red 0.0 Blood Cells % Immature 0.100 H Granulocytes # Neutrophils # 13.4 H Lymphocytes # 0.5 L Monocytes # 0.2 L Eosinophils # 0.0 Basophils # 0.0 Nucleated Red 0.0 Blood Cells # D-Dimer 1316.96 H D-Dimer Comment Sodium Level 142 Potassium Level 3.7 Chloride Level 100 Carbon Dioxide 30 Level Anion Gap 12 Blood Urea 11 Nitrogen Creatinine 0.43 L Est Glomerular Filtrat Rate mL/min Glucose Level 162 Hemoglobin A1c 5.4 Calcium Level 9.8 Total Bilirubin 0.0 L Direct Bilirubin 0.00 Indirect 0.0 Bilirubin Aspartate Amino 17 Transf (AST/SGOT) Alanine < 6 L Aminotransferase (ALT/SGPT) Alkaline 115 Phosphatase Total Protein 6.8 # Albumin 3.4 Globulin 3.40 H Albumin/Globulin 1.00 Ratio Exam/Review of Systems Exam Vitals Vital Signs Date Temp Pulse Resp B/P (MAP) Pulse Ox O2 O2 Flow FiO2 Time Delivery Rate 05/26/18 98.3 120 20 135/68 100 15:30 (90) 05/26/18 3.0 12:34 05/26/18 Nasal 12:30 Cannula Intake and Output 05/25/18 05/25/18 05/26/18 1515:00 23:00 07:00 IntakeIntake Total 100 ml OutputOutput Total 40 ml BalanceBalance 60 ml Results Results 24hrs Laboratory Tests Test 05/25/18 21:21 05/25/18 21:27 05/25/18 21:52 05/26/18 00:56 POC Venous 1.5 Lactate White Blood Count 12.7 #H Red Blood Count 4.32 # Hemoglobin 12.3 Hematocrit 41.2 Mean Corpuscular 95.4 Volume Mean Corpuscular 28.5 L Hemoglobin Mean Corpuscular 29.9 L Hemoglobin Concen t Red Cell 13.8 Distribution Width Platelet Count 703 #H Mean Platelet 9.2 Volume Immature 0.600 H Granulocytes % Neutrophils % 87.4 H Lymphocytes % 7.6 L Monocytes % 4.1 Eosinophils % 0.1 Basophils % 0.2 Nucleated Red 0.0 Blood Cells % Immature 0.070 H Granulocytes # Neutrophils # 11.1 H Lymphocytes # 1.0 Monocytes # 0.5 Eosinophils # 0.0 Basophils # 0.0 Nucleated Red 0.0 Blood Cells # Prothrombin Time 13.8 Prothrombin Time 1.1 Ratio INR International 1.05 Normalized Ratio Activated 31.9 Partial Thrombopl ast Time Sodium Level 141 Potassium Level 3.8 Chloride Level 98 Carbon Dioxide 31 Level Anion Gap 12 Blood Urea 10 Nitrogen Creatinine 0.46 Est Glomerular Filtrat Rate mL/min Glucose Level 130 Calcium Level 10.4 H Total Bilirubin 0.0 L Direct Bilirubin 0.00 Indirect 0.0 Bilirubin Aspartate Amino 21 Transf (AST/SGOT) Alanine < 6 L Aminotransferase (ALT/SGPT) Alkaline 151 H Phosphatase Troponin I 0.015 B-Type 423 H Natriuretic Peptide Total Protein 8.1 Albumin 4.0 Globulin 4.10 H Albumin/Globulin 0.97 Ratio Urine Color YELLOW Urine Clarity SLIGHTLY CLOUDY A Urine pH 6.0 Urine Specific 1.006 [place] Urine Ketones NEGATIVE Urine Nitrite NEGATIVE Urine Bilirubin NEGATIVE Urine NEGATIVE Urobilinogen Urine Leukocyte 3+ H Esterase Urine Microscopic 30 H RBC Urine Microscopic 78 H WBC Urine Bacteria FEW A Urine Hemoglobin 1+ H Urine Glucose NEGATIVE Urine Total NEGATIVE Protein Lactic Acid Level 1.6 Test 05/26/18 03:59 White Blood Count 14.2 H Red Blood Count 3.52 L Hemoglobin 10.3 L Hematocrit 33.4 L Mean Corpuscular 94.9 Volume Mean Corpuscular 29.3 Hemoglobin Mean Corpuscular 30.8 L Hemoglobin Concen t Red Cell 13.8 Distribution Width Platelet Count 600 H Mean Platelet 9.1 Volume Immature 0.700 H Granulocytes % Neutrophils % 94.7 H Lymphocytes % 3.2 L Monocytes % 1.3 Eosinophils % 0.0 Basophils % 0.1 Nucleated Red 0.0 Blood Cells % Immature 0.100 H Granulocytes # Neutrophils # 13.4 H Lymphocytes # 0.5 L Monocytes # 0.2 L Eosinophils # 0.0 Basophils # 0.0 Nucleated Red 0.0 Blood Cells # D-Dimer 1316.96 H D-Dimer Comment Sodium Level 142 Potassium Level 3.7 Chloride Level 100 Carbon Dioxide 30 Level Anion Gap 12 Blood Urea 11 Nitrogen Creatinine 0.43 L Est Glomerular Filtrat Rate mL/min Glucose Level 162 Hemoglobin A1c 5.4 Calcium Level 9.8 Total Bilirubin 0.0 L Direct Bilirubin 0.00 Indirect 0.0 Bilirubin Aspartate Amino 17 Transf (AST/SGOT) Alanine < 6 L Aminotransferase (ALT/SGPT) Alkaline 115 Phosphatase Total Protein 6.8 # Albumin 3.4 Globulin 3.40 H Albumin/Globulin 1.00 Ratio Medications Medication Current Medications Piperacillin Sod/ Tazobactam Sod 100 ml @ 200 mls/hr Q6 IVPB Last administered on 05/26/18at 05:56; Admin Dose 200 MLS/HR; Start 05/26/18 at 06:00 Sodium Chloride 1,000 ml @ 80 mls/hr [id number] IV Last administered on 05/26/18at 03:06; Admin Dose 80 MLS/HR; Start 05/25/18 at 22:26 IV Flush (NS 3 ml) 3 ml PER PROTOCOL IV ; Start 05/25/18 at 22:30 Ondansetron HCl (Zofran Inj) 4 mg Q6H PRN IV NAUSEA/VOMITING; Start 05/25/18 at 22:30 Ipratropium [place] (Atrovent 0.02% (Neb)) 0.5 mg Q4H RESP THERAPY HHN Last administered on 05/26/18 12:29; Admin Dose 0.5 MG; Start 05/25/18 at 22:30 Levalbuterol (Xopenex Neb) 1.25 mg Q4H RESP THERAPY HHN Last administered on 05/26/18at 12:30; Admin Dose 1.25 MG; Start 05/25/18 at 22:30 Acetylcysteine (Mucomyst) 3 ml Q6H RESP THERAPY NEB Last administered on 05/26/18at 08:40; Admin Dose 3 ML; Start 05/26/18 at 08:00; Stop 05/27/18 at 07:59 Alendronate Sodium (Fosamax) 70 mg Q7D PO ; Start 06/01/18 at 06:00 Alprazolam (Xanax) 0.25 mg TID PRN PO ANXIETY; Start 05/26/18 at 08:30 Gabapentin (Neurontin) 600 mg QHS PO ; Start 05/26/18 at 21:00 Losartan Potassium (Cozaar) 25 mg BID PO Last administered on 05/26/18at 10:10; Admin Dose 25 MG; Start 05/26/18 at 09:00 Memantine (Namenda) 10 mg QPM PO ; Start 05/26/18 at 21:00 Nystatin (Nystatin Susp) 5 ml QID PO Last administered on 05/26/18at 10:09; Admin Dose 5 ML; Start 05/26/18 at 09:00 Pantoprazole Sodium (Protonix) 20 mg BID@0600,1800 PO Last administered on 05/26/18at 10:09; Admin Dose 20 MG; Start 05/26/18 at 09:00 Atorvastatin Calcium (Lipitor) 10 mg DAILY@21 PO ; Start 05/26/18 at 21:00 Enoxaparin Sodium (Lovenox) 40 mg Q12 SC ; Start 05/26/18 at 21:00 JEANETTE CACERES May 26, 2018 16:14
[2018-05-26] MEDS ORDERED: GABAPENTIN 300 MG CAP PO SCH (21:00)
[2018-05-26] MEDS ORDERED: ATORVASTATIN 10 MG TAB PO SCH (21:00)
[2018-05-26] MEDS ORDERED: MEMANTINE 10 MG TAB PO SCH (21:00)
[2018-05-26] MEDS: ENOXAPARIN 40 MG/0.4 ML SYG SC SCH (22:02)
[2018-05-27] VITALS (10 sets, daily range): BP systolic 126–154; BP diastolic 59–80; PULSE 123–142; RESP 18–20
[2018-05-27] MEDS: IPRATROPIUM (NEB) 0.5 MG/2.5 ML AMP HHN SCH ×5 (01:00→17:00)
[2018-05-27] MEDS: LEVALBUTEROL (NEB) 1.25 MG/0.5 ML AMP HHN SCH ×5 (01:00→17:00)
[2018-05-27] MEDS: ACETYLCYSTEINE 20% 4 ML VIAL NEB SCH (02:00)
[2018-05-27] MEDS: PIPER-TAZO 3.375 GM IV (PMX) 100 ML IVPB SCH ×3 (06:07→18:17)
[2018-05-27] MEDS: LANSOPRAZOLE 30 MG CAP PO SCH ×2 (06:07→18:00)
--- NOTE | 2018-05-27 07:38 | NUR ---
RN END OF SHIFT NOTE PATIENT ALERT AND ORIENTED X 4, DENIED PAIN, ABLE TO MAKE HER NEEDS KNOWN. PATIENT HAD ONE BM ON MY SHIFT, CLEANED AND KEPT DRY. 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 PATIENT TURNED Q 2 HOURS, SACROCOCCYX AREA RED, SAVANAH APPLIED. TO ENDORSED TO DAY SHIFT RN TO CONTINUE TO TURN PATIENT Q 2 HOURS.
[2018-05-27] MEDS: NYSTATIN SUSP 5 ML CUP PO SCH ×3 (10:15→17:00)
[2018-05-27] MEDS: LOSARTAN 25 MG TAB PO SCH (10:15)
--- NOTE | 2018-05-27 10:25 | NUR ---
ST NOTE; Pt is a 73 female being admitted to the telemetry floor secondary to sepsis from underlying UTI; found to be hypoxic when brought in. poss; pneumonia on CXR; CT did not show evidence of pna; pt uses a home CPAP/BIPAP at night. PMH: ALS, history of UTI; depression; osteoporosis; HTN; Dementia; GERD CODE STATUS: DNR/DNI Allergies: Adhesive tape premorbid diet; puree;thin current diet; puree;nctr spoon Respiratory Status; pt on supplemental oxygen via nasal cannula 3liters. dental status; permanent upper;lower dentition Vitals/lab; WBC high; pt afebrile CXR: 05/25/18Worsening marked elevation of the left diaphragm. Left lung atelectasis and possible effusion. Only a small amount of aerated lung seen in the left upper lobe. Dilated loops of bowel underneath the left diaphragm. Possible patchy right lower lobe infiltrate. Further evaluation with a CT of the chest and abdomen is recommended. CTA 05/26/18 here is progressive collapse and consolidation of the left lower lobe with complete occlusion of the left lower lobe bronchi along with partial collapse the left upper lobe with partial occlusive changes of the left upper lobe bronchi as well with a residual amount of left apical lung parenchyma that remains aerated. This can be further evaluated with bronchoscopy rule out mucus plugging or endobronchial lesion. There is progressive now complete collapse the right middle lobe with occlusion of the right middle lobe bronchi with partial atelectasis of the right lung base due to distal airways occlusion. This can also be further assessed with bronchoscopy. Stable pronounced elevation of the left hemidiaphragm with left upper quadrant contents of the abdomen that are located in the lower thorax including the entirety of the stomach and portions of the transverse colon and pancreatic tail. This could also represent a diaphragmatic hernia which may be chronic. Continued hydronephrosis of the left kidney with delayed enhancement and atrophy of the left renal parenchyma along with layering stones in the left mid kidney. Atherosclerotic disease. Cognitive Status; Pt able to follow; severely decreased speech intelligibility; Oral Motor: pt difficulty managing her secretions; ant and lateral spillage of secretions as well with liquid trials; [place] used to suction oral cavity; severe to profound lingual and labial weakness no head or trunk control pt seated semi upright; pt seen with am tray; daughter devon present; reported just recently from nursing staff placed on nctr thick sec.to aspiration precautions. nectar thick via spoon; timely swallow but suspect decreased oral control. multiple trials no cough; wet vocal quality at baseline sec.to secretions heard in upper airway; via cup nctr x1 delayed cough; cough weak and unproductive. suspect pharyngeal residue. thin tested 1/2 tsp to assess if less residue and if can tolerate thinner bolus; no coughing but again suspect silent aspiration with both puree;solids; pt has laryngeal elevation and appears appropriate timing of the swallow rec. video swallow study; family unsure if they want that; educated as high risk for asp with current diet and suspected. family to decide if pt wants video. they do not want NPO status; monitor closely; st to follow
[2018-05-27] MEDS: ENOXAPARIN 40 MG/0.4 ML SYG SC SCH (10:28)
[2018-05-27] MEDS ORDERED: METOPROLOL 5 MG INJ IV ONE (10:45)
--- NOTE | 2018-05-27 11:38 | CONS ---
Assessment/Plan Assessment/Plan Assessment/Plan (Daily) Assessment recommendations; 1. Patient with history of advanced ALS admitted for pneumonia involving left lung. With a history of significant left hemidiaphragm eventration. 2. Persistent hypoxemia due to pneumonia. Continue current supportive care. Add vancomycin. Prognosis appears poor. I did have a detailed discussion with the patient's daughter at bedside answered all her questions. Obtain follow-up chest x-ray in 48 hours. Consultation Date/Type/Reason Admit Date/Time May 27, 2018 at 09:33 Initial Consult Date 05/26/18 Type of Consult Pulmonary Patient is a pleasant 73-year-old lady who was brought into the hospital with complaints of having some chest congestion and coughing. Upon evaluation further workup was done including a chest x-ray which is showing chronic volume loss of the left side due to eventration of left hemidiaphragm with possibility of superimposed pneumonia as well as UTI. The patient however is doing very well clinically and was completely awake and alert by the time I saw her. She denies any shortness of breath, chest pain, complains of scant cough without any wheezing or fever. Denies any abdominal pain nausea vomiting. Past medical history; 1. History of ALS. 2. History of UTI. 3. History of DVT. Medications; reviewed. Allergies; adhesive tape. Social history; patient has been a non-smoker. Family history; patient has a supportive family. Occupational history; patient is on disability. Review of systems; denies any headache, chest pain, shortness of breath has improved. Complains of scant cough. Patient denies having any dysphagia. Able to eat orally quite well. Denies any abdominal pain, nausea vomiting. Any fever or chills. General exam; elderly female, awake alert, currently in no distress. Date/Time of Note DATE: 05/27/18 TIME: 11:37 24 HR Interval Summary Free Text/Dictation Patient condition is tenuous at best. Having episodes of shortness of breath and chest congestion. General exam; elderly female, appears emaciated and lethargic. Exam/Review of Systems Exam Vitals Vital Signs Date Temp Pulse Resp B/P (MAP) Pulse Ox O2 O2 Flow FiO2 Time Delivery Rate 05/27/18 97.9 123 18 135/62 78 11:27 (86) 05/27/18 Nasal 3.0 08:34 Cannula Intake and Output 05/26/18 05/26/18 05/27/18 1515:00 23:00 07:00 IntakeIntake Total 100 ml 1130 ml OutputOutput Total 650 ml 400 ml BalanceBalance -550 ml 730 ml Exam HEENT exam; supple neck, no JVD. No lymphadenopathy. Midline trachea. No thyromegaly. Patient has fair dentition. Chest exam; diminished breath sounds left lung. Right lung is fairly clear. S1-S2 audible, no murmurs. Tachycardic. Abdomen exam; soft, scaphoid. Nontender. Nondistended. Bowel sounds audible. Extremity exam; no peripheral edema. 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 Results Result Diagram: 05/26/18 0359 05/26/18 0359 Medications Medication Current Medications Piperacillin Sod/ Tazobactam Sod 100 ml @ 200 mls/hr Q6 IVPB Last administered on 05/27/18at 06:07; Admin Dose 200 MLS/HR; Start 05/26/18 at 06:00 Sodium Chloride 1,000 ml @ 80 mls/hr [id number] IV Last administered on 05/26/18at 22:09; Admin Dose 80 MLS/HR; Start 05/25/18 at 22:26 IV Flush (NS 3 ml) 3 ml PER PROTOCOL IV ; Start 05/25/18 at 22:30 Ondansetron HCl (Zofran Inj) 4 mg Q6H PRN IV NAUSEA/VOMITING; Start 05/25/18 at 22:30 Ipratropium [place] (Atrovent 0.02% (Neb)) 0.5 mg Q4H RESP THERAPY HHN Last administered on 05/27/18at 09:26; Admin Dose 0.5 MG; Start 05/25/18 at 22:30 Levalbuterol (Xopenex Neb) 1.25 mg Q4H RESP THERAPY HHN Last administered on 05/27/18at 09:26; Admin Dose 1.25 MG; Start 05/25/18 at 22:30 Alendronate Sodium (Fosamax) 70 mg Q7D PO ; Start 06/01/18 at 06:00 Alprazolam (Xanax) 0.25 mg TID PRN PO ANXIETY; Start 05/26/18 at 08:30 Gabapentin (Neurontin) 600 mg QHS PO Last administered on 05/26/18 21:51; Admin Dose 600 MG; Start 05/26/18 at 21:00 Losartan Potassium (Cozaar) 25 mg BID PO Last administered on 05/27/18 10:15; Admin Dose 25 MG; Start 05/26/18 at 09:00 Memantine (Namenda) 10 mg QPM PO Last administered on 05/26/18 21:51; Admin Dose 10 MG; Start 05/26/18 at 21:00 Nystatin (Nystatin Susp) 5 ml QID PO Last administered on 05/27/18 10:15; Admin Dose 5 ML; Start 05/26/18 at 09:00 Atorvastatin Calcium (Lipitor) 10 mg DAILY@21 PO Last administered on 05/26/18 21:51; Admin Dose 10 MG; Start 05/26/18 at 21:00 Enoxaparin Sodium (Lovenox) 40 mg Q12 SC Last administered on 05/27/18 10:28; Admin Dose 40 MG; Start 05/26/18 at 21:00 Lansoprazole (Prevacid) 30 mg BID@0600,1800 PO Last administered on 05/27/18 06:07; Admin Dose 30 MG; Start 05/27/18 at 06:00 MARQUIS GHOSH May 27, 2018 11:38
[2018-05-27] MEDS: SOD CHLORIDE 0.9% 1,000 ML IV SCH (11:56)
--- NOTE | 2018-05-27 13:40 | NUR ---
SW: HOSPICE SW was contacted by Dr. Bacon, stating that she and Dr. Butler spoke with patient's family regarding hospice, and that family already has a hospice agency called [facility] that they want a referral to be made to. MELISSA contacted patient's daughter, who confirmed that she and family do want hospice, and she provided verbal consent for referral to be made to [facility] for home with hospice. SW made referral to [facility] ([phone]/ fax: [phone]) per families request. SW remains available as needed.
--- NOTE | 2018-05-27 13:59 | NUR ---
RN NOTES: PT STARTED TO DESAT WITH 3L NC. PT'S OXYGEN WAS INCREASED TO 4L WITH O2 SATURATION AROUND 84%. NURSE CALLED RT TO CHECK ON PT'S RESPIRATORY STATUS AND PUT HER ON A NONREBREATHER MASK AT 15L. PT'S O2 SATURATION WITH NONREBREATHER MASK IS AROUND 88-91%. PT'S DAUGHTER HAS ARRANGED FOR [facility] AT HOME. SW AND MD SPOKE WITH PATIENT'S FAMILY TO FOLLOW UP ON THE DECISION. WILL CONTINUE TO MONITOR PT.
[2018-05-27] MEDS ORDERED: ZOS3375I IV (15:30)
--- NOTE | 2018-05-27 16:06 | NUR ---
SW: F/U SW was asked to follow up with patient's at bedside, per husbands request. SW met with patient's and daughter at bedside. He denied requesting to speak with this speech writer. However, he did state that he has signed consents for [facility]. At this time, plan is for patient to be transferred home with [facility] hosp[facility]. According to [facility], [facility] will be providing transportation home. SW remains available as needed throughout patient's treatment process.
--- NOTE | 2018-05-27 18:43 | NUR ---
EOSS: PT HAS DISCHARGE ORDERS FOR HOME WITH HOSPICE. PT'S AND DAUGHTER HAVE BEEN AT HER BEDSIDE ALL DAY AND THEY HAVE ALREADY ARRANGED FOR [facility] TO TAKE OVER CARE AT HOME. PT IS ON A NONREBREATHER MASK AT ABOUT 15L WITH O2 SATURATION AROUND LOW TO MID 80'S. PT WILL BE TRANSFERRED WITH AMBULANCE AROUND 7:00 PM. MD AWARE OF HOSPICE DECISION. MEDICATIONS HAVE BEEN GIVEN SCHEDULED. ALL PT'S NEEDS HAVE BEEN MET. WILL ENDORSE TO [employer] DRILL OPERATOR NURSE.
--- NOTE | 2018-05-27 23:10 | DS ---
Date/Time of Note Date/Time of Note DATE: 05/27/18 TIME: 23:08 Discharge Summary Admission/Discharge Info Admit Date/Time May 27, 2018 at 09:33 Discharge Date/Time May 27, 2018 at 19:46 Discharge Diagnosis This is a 73-year-old female with a history of ALS, has been having 1 week of feeling sick, having progressive shortness of breath. Brought in by ambulance with hypoxia and was on outpatient abx with progression of symptoms, currently admitted and managed as follows: #1 Sepsis: Secondary to underlying UTI and possible aspiration pneumonia #2 acute on chronic respiratory distress: -diffuse atelectasis on CXR, f/u CT chest, continue supplemental O2 -Patient with hx of ALS ?disease progression #3 urinary tract infection: #4 ALS: end stage #5 depression: #6 osteoporosis: #7 hypertension: #8 Chronic dementia: #9 GERD: Continue omeprazole -patient has hx of severe GI bleeding from a gastric ulcer that was cauterized in the past, family hesitant to use full dose anticoagulation because of this #10 DVT and GI prophylaxis, Lovenox, Protonix CODE STATUS: DNR/DNI . Patient Condition: Guarded Consults Pulmonary: Natalia Ludwig MD Palliative care: Poonam Butler MD . Procedures See hospital course . Hospital Course 73-year-old female with a history of ALS who was brought in for shortness of breath and hypoxia. She was managed for sepsis and respiratory distress secondary to possible aspiration pneumonia and urinary tract infection. She was on home hospice about a year ago but had opted to go off of it because she seemed to do well. She does have a home palliative care doctor who had given he r a course of oral antibiotics at home but still had progression of symptoms so she came to the ER. However by day 2 of her admission. She D CT scan of her chest that showed diffuse lung collapse and consolidation as well as occlusive changes, and when findings were reviewed with the patient and her family, patient requested to be discharged home without further intervention on hospice care. Hospice care was reviewed with her. Hospice and patient is being discharged to their care in poor condition with a guarded prognosis. . Home Meds Active Scripts Piperacillin/Tazobactam Sod (ZOSYN) 3.375 Gm Soln, 3.375 GM IV Q8H for 7 Days, VIAL Prov:MORRISJEANETTE Gomez 05/27/18 Nystatin (Nystatin) 100,000 Unit/1 Ml Oral.susp, 5 ML PO QID for 7 Days, #150 ML Prov:MORRISJEANETTE 01/27/18 Reported Medications Oxycodone HCl/Acetaminophen (Percocet 7.5-325 mg Tablet) 1 Each Tablet, 1 EACH PO, TAB 01/20/18 Alprazolam* (Alprazolam*) 0.25 Mg Tablet, 0.25 MG PO TID PRN for ANXIETY, TAB 01/20/18 Alendronate Sodium* (Fosamax*) 70 Mg Tablet, 70 MG PO Q7D, #4 TAB 01/20/18 Memantine* (Namenda*) 10 Mg Tablet, 10 MG PO QPM, #30 TAB 01/20/18 Donepezil* (Donepezil*) 10 Mg Tablet, 10 MG PO QHS, #30 TAB 01/20/18 Quetiapine Fumarate* (Seroquel*) 25 Mg Tablet, 25 MG PO HS, #30 TAB 01/20/18 Omeprazole* (Omeprazole*) 20 Mg Capsule.dr, 20 MG PO BID, #30 CAP 01/20/18 Pravastatin Sodium (Pravachol) 20 Mg Tablet, 20 MG PO QPM, TAB 01/20/18 Gabapentin* (Gabapentin*) 300 Mg Capsule, 600 MG PO QHS, #180 CAP 01/20/18 Losartan Potassium* (Losartan Potassium*) 25 Mg Tablet, 25 MG PO BID, TAB 01/20/18 Venlafaxine Hcl* (Effexor XR*) 150 Mg Cap.sr.24h, 150 MG PO QAM, CAP 01/20/18 Dextromethorphan Hbr/Quinidine (NUEDEXTA 20-10 MG CAPSULE) 1 Each Capsule, 1 EACH PO BID, CAP 01/20/18 Follow-up Plan Home with home hospice . Primary Care Provider Not On Staff Doctor Time spent on discharge: > 30 minutes JEANETTE CACERES May 27, 2018 23:10
[2018-06-01] MEDS ORDERED: ALENDRONATE 70 MG TAB PO SCH (06:00)
== END 2018-05-27 19:46 | disposition hospice, home (50) | DRG 871 ==
LOC: E/R 20:47 → TEL 22:18 → OBSVTOIN 05-27 09:33
PROVIDERS: ADMIT Family Medicine; ATTEND Family Medicine
DX: A41.9 Sepsis, unspecified organism (principal); J69.0 Pneumonitis due to inhalation of food and vomit; N39.0 Urinary tract infection, site not specified; G12.21 Amyotrophic lateral sclerosis; R06.03 Acute respiratory distress; G30.9 Alzheimer's disease, unspecified; F02.80 Dementia in other diseases classified elsewhere, unspecified severity, without behavioral disturbance, psychotic disturbance, mood disturbance, and anxiety; F32.9 Major depressive disorder, single episode, unspecified; M81.0 Age-related osteoporosis without current pathological fracture; I10 Essential (primary) hypertension; K21.9 Gastro-esophageal reflux disease without esophagitis; E78.5 Hyperlipidemia, unspecified; F41.9 Anxiety disorder, unspecified; Z66 Do not resuscitate; Z86.718 Personal history of other venous thrombosis and embolism; Z87.11 Personal history of peptic ulcer disease
CPT/HCPCS: 36415; 71045; 71250; 71275; 74176; 80053; 81001; 83036; 83605; 83880; 84484; 85025; 85378; 85610; 85730; 87040; 87086; 92610; 93005; 93970; 94640; 94644; 94664; 96374; G0378; J1100; J1650; J2543; J7030; Q9967